=== PATIENT | female | born 1995 | race Caucasian/White ===

== ENCOUNTER → 2021-06-25 13:27 | Outpatient (BNVA) | payer SELFPAY | PROVIDERS: Family Provider General Practice; PCP Family Medicine; Visit Provider Nurse Practitioner Women's Health | DX: O20.9 Hemorrhage in early pregnancy, unspecified (principal); Z3A.00 Weeks of gestation of pregnancy not specified | CPT/HCPCS: 84702; 85025; 86850; 86900 ==

== ENCOUNTER 2021-12-05 09:34 | Outpatient (CLI) | payer OTHER, SELFPAY ==
[2021-12-05 10:29] LABS: Hematocrit 42.3 % (37.0-47.0); Hemoglobin 15.2 g/dL (11.5-15.3); Mean Corpuscular HGB Conc 35.9 g/dL (30.0-36.0); Mean Corpuscular Hemoglobin 30.8 pg (28.0-34.0); Mean Corpuscular Volume 85.6 fl (81-99); Mean Platelet Volume 9.7 fL (7.4-10.4); Platelet Count 346 10^3/cmm (130-400); Red Blood Count 4.94 10^6/uL (4.1-5.3); Red Cell Distribution Width 12.2 % (12.1-15.1); White Blood Count 8.7 10^3/uL (4.0-10.0)
== END 2021-12-05 09:35 | disposition home or self-care (01) ==
PROVIDERS: PCP Family Medicine; Visit Provider Nurse Practitioner Women's Health
DX: N92.6 Irregular menstruation, unspecified (principal)
CPT/HCPCS: 81025; 84702; 85027; 86850; 86900

== ENCOUNTER → 2022-01-06 08:09 | Outpatient (BNVA) | payer OTHER, SELFPAY | PROVIDERS: PCP Family Medicine; Visit Provider Obstetrics & Gynecology | DX: Z34.90 Encounter for supervision of normal pregnancy, unspecified, unspecified trimester (principal) | CPT/HCPCS: 80307; 84315; 85027; 86592; 86762; 86803; 86850; 86900; 87086; 87340; 87491; 87591; 87806; 88175 ==

== ENCOUNTER → 2022-03-17 15:05 | Outpatient (BNVA) | payer OTHER, SELFPAY | PROVIDERS: PCP Family Medicine; Visit Provider Obstetrics & Gynecology | DX: Z34.90 Encounter for supervision of normal pregnancy, unspecified, unspecified trimester (principal); R82.90 Unspecified abnormal findings in urine | CPT/HCPCS: 84315; 87086 ==

== ENCOUNTER → 2022-04-29 12:03 | Outpatient (BNVA) | payer OTHER, SELFPAY | PROVIDERS: PCP Family Medicine; Visit Provider Obstetrics & Gynecology | DX: Z34.90 Encounter for supervision of normal pregnancy, unspecified, unspecified trimester (principal) | CPT/HCPCS: 82950; 84315; 85027 ==

== ENCOUNTER → 2022-06-03 09:10 | Outpatient (BNVA) | payer OTHER, SELFPAY | PROVIDERS: PCP Family Medicine; Visit Provider Obstetrics & Gynecology | DX: O40.9XX0 Polyhydramnios, unspecified trimester, not applicable or unspecified (principal); Z3A.00 Weeks of gestation of pregnancy not specified | CPT/HCPCS: 76815; 76819 ==

== ENCOUNTER → 2022-07-01 09:42 | Outpatient (BNVA) | payer OTHER, SELFPAY | PROVIDERS: PCP Family Medicine; Visit Provider Obstetrics & Gynecology | DX: O40.9XX0 Polyhydramnios, unspecified trimester, not applicable or unspecified (principal); Z3A.00 Weeks of gestation of pregnancy not specified | CPT/HCPCS: 76815; 76819; 84315; 87081 ==

== ENCOUNTER → 2022-07-08 12:56 | Outpatient (BNVA) | payer OTHER, SELFPAY | PROVIDERS: PCP Family Medicine; Visit Provider Obstetrics & Gynecology | DX: O40.3XX0 Polyhydramnios, third trimester, not applicable or unspecified (principal); Z3A.00 Weeks of gestation of pregnancy not specified | CPT/HCPCS: 76819; 84315 ==

== ENCOUNTER → 2022-07-15 11:44 | Outpatient (BNVA) | payer OTHER, SELFPAY | PROVIDERS: PCP Family Medicine; Visit Provider Obstetrics & Gynecology | DX: O40.9XX0 Polyhydramnios, unspecified trimester, not applicable or unspecified (principal); Z3A.00 Weeks of gestation of pregnancy not specified | CPT/HCPCS: 76819 ==

== ENCOUNTER 2022-07-15 12:49 | Outpatient (CLI) | payer OTHER, SELFPAY ==
[2022-07-15 12:49] VITALS: BMI 32.8
[2022-07-15 13:05] VITALS: TEMP 36.7
[2022-07-15 13:06] VITALS: BP 128/86; PULSE 98
[2022-07-15 13:34] LABS: Basophils % 0.3 %; Eosinophils # 0.1 10^3/uL (0.0-0.8); Eosinophils % 0.9 %; Hematocrit 34.4 % (37.0-47.0); Hemoglobin 12.2 g/dL (11.5-15.3); Lymphocytes % 21.9 %; Mean Corpuscular HGB Conc 35.5 g/dL (30.0-36.0); Mean Corpuscular Volume 87.5 fl (81-99); Mean Platelet Volume 11.1 fL (7.4-10.4); Monocytes # 0.6 10^3/uL (0.2-0.9); Monocytes % 6.3 %; Neutrophils % 70.3 %; Nucleated Red Blood Cells % 0 %; Platelet Count 313 10^3/cmm (130-400); Red Blood Count 3.93 10^6/uL (4.1-5.3); Red Cell Distribution Width 13.6 % (12.1-15.1)
[2022-07-15 13:52] LABS: Alanine Aminotransferase 11 U/L (0-33); Albumin Level 3.5 g/dL (3.5-5.2); Alkaline Phosphatase 162 U/L (35-105); Anion Gap 17.4 (5-19); Aspartate Amino Transferase 18 U/L (0-32); Blood Urea Nitrogen 7 mg/dL (6-20); Calcium 9.9 mg/dL (8.5-10.5); Carbon Dioxide 19 mmol/L (22-29); Chloride 98 mmol/L (98-107); Globulin 3.5 g/dL (1.3-4.6); Glomerular Filtration Rate 145.9 mL/min (90-130); Glucose 89 mg/dL (65-115); Osmolality Calculated 267 mOsm/kg (285-295); Potassium 4.4 mmol/L (3.5-5.1); Sodium 130 mmol/L (136-145); Total Bilirubin 0.3 mg/dL (0.15-1.2); Uric Acid 3.7 mg/dL (2.4-5.7)
[2022-07-15 14:00] LABS: Urine Creatinine 28 mg/dL (28-217); Urine Protein Random 5 mg/dL
[2022-07-15 14:01] LABS: UPRO/UCREAT Ratio 0.18 mg/mg CR
[2022-07-15 14:10] VITALS: BP 127/87; PULSE 76
[2022-07-15 14:15] LABS: Protein Urine Neg (Negative); Urine Appearance Hazy (CLEAR); Urine Color Yellow (Yellow); pH Urine 8 (5-7)
[2022-07-15 14:16] LABS: Add Urine Culture? Yes; Add Urine Microscopic? YES; Bacteria Urine 2+ /hpf; Bilirubin Urine Neg (Negative); Blood Urine Neg (Negative); Glucose Urine UA Norm (Normal); Ketones Urine Negative (Negative); Leukocyte Esterase Urine 1+ (Negative); Nitrate Urine Negative (Negative); RBC Urine 0-4 /hpf (0-2); Sulfosalicylic Acid Urine Negative (Negative); Urobilinogen Urine Neg (Negative)
== END 2022-07-15 14:24 | disposition home or self-care (01) ==
LOC: OPOB 12:56 → OBGYN 13:01
PROVIDERS: PCP Family Medicine; Visit Provider Obstetrics & Gynecology
DX: O40.3XX0 Polyhydramnios, third trimester, not applicable or unspecified (principal); Z3A.38 38 weeks gestation of pregnancy
CPT/HCPCS: 36415; 59025; 80053; 81000; 81001; 82570; 84156; 84550; 85025; 87086; 99211

== ENCOUNTER → 2022-07-21 10:27 | Outpatient (BNVA) | payer OTHER, SELFPAY | PROVIDERS: PCP Family Medicine; Visit Provider Obstetrics & Gynecology | DX: O40.9XX0 Polyhydramnios, unspecified trimester, not applicable or unspecified (principal); Z3A.00 Weeks of gestation of pregnancy not specified | CPT/HCPCS: 76819; 84315 ==

== ENCOUNTER 2022-07-23 01:02 | Inpatient (IN) | payer OTHER, SELFPAY ==
[2022-07-22] VITALS (14 sets, daily range): BP systolic 106–135; BP diastolic 64–99; PULSE 69–85; RESP 15–16; TEMP 36.5–36.6; BMI 33.7
[2022-07-22] MEDS: dextrose 5%-lactated ringers 1,000 ML 999 ML IV ×2 (22:01→23:05)
[2022-07-22 23:02] LABS: Basophils % 0.4 %; Eosinophils # 0.1 10^3/uL (0.0-0.8); Hemoglobin 11.5 g/dL (11.5-15.3); Lymphocytes # 2.7 10^3/uL (0.8-4.8); Lymphocytes % 24.4 %; Mean Corpuscular HGB Conc 34.8 g/dL (30.0-36.0); Mean Corpuscular Hemoglobin 30.5 pg (28.0-34.0); Mean Corpuscular Volume 87.5 fl (81-99); Mean Platelet Volume 11.9 fL (7.4-10.4); Monocytes # 0.8 10^3/uL (0.2-0.9); Monocytes % 7.5 %; Neutrophils % 66.3 %; Nucleated Red Blood Cells % 0 %; Platelet Count 301 10^3/cmm (130-400); Red Blood Count 3.77 10^6/uL (4.1-5.3); Red Cell Distribution Width 13.4 % (12.1-15.1)
[2022-07-22] MEDS: miSOPROStol 100 mcg tablet 25 MCG VAGINAL (23:52)
[2022-07-23] VITALS (95 sets, daily range): BP systolic 95–147; BP diastolic 54–118; PULSE 38–107; RESP 16–18; TEMP 36.2–37.3; O2SAT 95–100
[2022-07-23] MEDS: dextrose 5%-lactated ringers 1,000 ML 999 ML IV (04:10)
[2022-07-23] MEDS: dextrose 5%-lactated ringers 1,000 ML 125 ML IV ×3 (05:56→14:05)
[2022-07-23] MEDS: lactated ringers 1,000 ML 999 ML IV ×3 (08:34→15:12)
--- NOTE | 2022-07-23 10:04 | P.ANESASSM_ITS ---
Pre-Anesthetic Assessment Height/Weight: Height 1.65 m Weight 92.079 kg Temp Pulse Resp BP Pulse Ox O2 Del Method 97.3 F L 71 15 110/70 99 07/23/22 09:59 07/23/22 10:01 07/22/22 21:23 07/23/22 10:01 07/23/22 10:01 07/22/22 21:17 Familial anesthetic complications: none Was Beta Alan taken within 24 hours: N/A Was Clonidine taken within 24 hours: N/A Social No alcohol Exam alert, oriented x 3, clear to auscultation bilaterally and regular rate & rhythm Airway Submandibular: within normal limits Cervical ROM: within normal limits Mallampati: Class II Dentition: full History/ROS No significant history except as noted GI Gastroesophageal Reflux Disease Anesthetic Plan ASA status: 2 Anesthesia: Regional (specify below) (labor epidural) Medications/Allergies Home Medications Medication Instructions Recorded Confirmed Last Taken Type prenat.vits,yamileth,ova-jvoc-fllco 1 tab PO DAILY 01/06/22 07/22/22 07/14/22 History famotidine 20 mg tablet (Pepcid) 20 mg PO DAILY 05/28/22 07/22/22 Unknown Hist ory Allergies Allergy/AdvReac Type Severity Reaction Status Date / Time No Known Allergies Allergy Verified 07/22/22 22:23 Current Medications Generic Name Dose Route Start Last Admin Trade Name Freq PRN Reason Stop Dose Admin Dextrose/Lactated Ringer's 1,000 mls @ 125 mls/hr 07/22/22 21:30 07/23/22 05:56 Dextrose 5%-Lactated Ringers IV 125 mls/hr .Q8H ENRIQUE Administration Ropivacaine 200 mg in 100 mls @ 13 mls/hr 07/23/22 08:30 07/23/22 09:54 Naropin Premix EPIDURAL 13 mls/hr .Q7H42M ENRIQUE Administration Lactated Ringer's 1,000 mls @ 999 mls/hr 07/23/22 08:22 07/23/22 09:35 Lactated Ringers IV 999 mls/hr .Q1H1M PRN Administration See label comments PFSH Anesthesia Medical History No pertinent past medical history Denies diabetes, asthma, hypertension, seizures, DVT/PE PCP: Dr. Pérez Surgical History No pertinent past surgical history Family History Grandmother Stroke Paternal Sister Thyroid disease x2 Hypertension Grandfather Diabetes Paternal Heart disease Paternal -- dx age 70 Father Diabetes Heart disease dx age 49 Denies family history of Colon cancer Ovarian cancer Hypercholesteremia Breast cancer Uterine cancer Social History Smoking and tobacco status: never smoked Female Reproductive History Date of last menstrual period: 10/22/21 : 2 Data Anesthesia : 07/22/22 21:48 Short CBC 07/22/22 Range/Units 21:48 WBC 11.0 H (4.0-10.0) 10^3/uL Hgb 11.5 (11.5-15.3) g/dL Hct 33.0 L (37.0-47.0) % MCV 87.5 (81-99) fl Plt Count 301 (130-400) 10^3/cmm Neut % (Auto) 66.3 % Neut # (Auto) 7.30 (1.8-7.7) 10^3/uL Cardiac Studies: No Data to Display Anesthesia Procedures Epidural Time Out Performed: Yes Consents Signed: Procedure Consent Consent: requested by attending/covering physician, from patient, risks and benefits reviewed and patient agrees to proceed Lumbar Level: L3-L4 Epidural position: sitting Epidural procedure: sterile prep of area, 1% lidocaine to numb the area, 18 g needle, neg for paresthesia, test dose given, 1.5% xylocaine 1:200k epi, placed PCEA, no systemic response, sterile dressing applied and 0.2% Ropiavacaine @ mls/hr (13) Additional Comments: NAVYA at 8cm, cath at 12cm, bolused 5mls of 2% lido PF
--- NOTE | 2022-07-23 11:15 | PM.OPHPUD ---
Labor & Delivery H&P Update Date of Procedure: July 23, 2022 Date H&P Performed: 07/21/22 H&P update information: I have reviewed H&P completed within last 30 days, I have examined patient prior to procedure and No changes to prior documentation Admission Diagnosis: Related Problem List Diagnoses (1) GERD (gastroesophageal reflux disease): (2) Supervision of normal :
--- NOTE | 2022-07-23 15:03 | P.PN_ITS ---
Subjective Subjective: The patient has been making slow progress all day. She would have variable decelerations, then have a normal tracing. AROM produced thick meconium fluid. Since then, she has not progressed past 6 cm. Her perineum is becoming swollen, as well as her cervix. The baby is now having late appearing decelerations with every contraction. We have tried every resuscitative measure without resolution. She has had a persistent category 2 tracing. I have spoken with the patient and recommend section at this time. It has been called as an urgent . Vitals/I&O/Wt Last Vital Signs Temp 97.2 F L 07/23/22 13:21 Pulse 70 07/23/22 14:48 Resp 15 07/22/22 21:23 BP 126/68 07/23/22 14:48 Pulse Ox 100 07/23/22 10:26 O2 Del Method 07/22/22 21:17 07/23/22 07/23/22 07/23/22 06:59 14:59 22:59 Intake Total 3000.0 / 3000.0 3425.001 / 3425.001 Output Total 600 / 600 Balance 2400.0 / 2400.0 3425.001 / 3425.001 Weight last 48 hrs Weight 203 lb Physical Exam Urinary Catheter Management: Rogers Latex: Cath Placed During This Visit: yes Urinary Catheter Date of Insertion: 07/23/22 Urinary Catheter Time of Insertion: 10:20 Data : 07/22/22 21:48 Attestations Medical Necessity Statement*: The patient will have a section. She will be here at least two midnights. Coding Level of Care Code Acute Cardroom Attendant for Esteban Sellers
[2022-07-23] MEDS: famotidine 20 mg/2 mL INJ IVP (15:21)
[2022-07-23] MEDS: metoclopramide 5 mg/mL SDV 2 mL 10 MG IVP (15:21)
[2022-07-23] MEDS: citric acid-sodium citrate 30 mL UDC PO (15:21)
[2022-07-23] MEDS: ceFAZolin 2,000 MG in sodium chloride 0.9% (plus) 50 ML 100 MG IV (15:21)
--- NOTE | 2022-07-23 16:45 | ANE.PACU2 ---
Inpatient post-anesthesia follow up: Airway intact: Yes Vital signs: Temperature 99.1 F Pulse Rate 100 Respiratory Rate 15 Blood Pressure 117/76 Pulse Oximetry 100 Oxygen Delivery Me thod Room Air Oxygen Flow Rate Fraction of Inspir ed Oxygen Hydration adequate: Yes Nausea and vomiting: No Pain level: 1 Mental status: Baseline
--- NOTE | 2022-07-23 16:46 | PM.OP ---
Operative Report Date of procedure: July 23, 2022 Pre-op diagnosis: intolerance to labor Post-op diagnosis: same Procedure done: primary Specimens removed/disposition: placenta to pathology Surgeon: Arleth Vaz Anesthesia: Epidural Estimated blood loss (mL): 700 IV fluids (mL): 1,500 Urine output (mL): 50 Complications: none Findings: term male in the KRISTI presentation with a double nuchal cord Condition: stable Disposition: PACU Brief History: The patient was admitted for induction at term. She received one dose of cytotec and began to labor. The baby would have periods of category 2 tracings and then return to category 1. After about 4 hours of being dilated to 6 cm, the tracing showed decreased variability and late appearing decelerations with almost every contraction. I recommended a . She agreed. Procedure: The patient was taken to the operating room where spinal anesthesia was administered and found to be adequate. She was prepped and draped in the normal sterile fashion in the dorsal supine position with a leftward tilt. A Pfannenstiel skin incision was made and carried down to the underlying layer of fascia. The fascia was nicked in the midline and extended laterally with the Alonzo scissors. The fascia was then tented up and the rectus muscles dissected off sharply. The rectus muscles were and the peritoneum entered bluntly with the digit. The peritoneal incision was extended superiorly and inferiorly with good visualization of the bladder. The Kenyon O retractor was placed. It was clear of any bowel or omentum. The bladder flap was created sharply with the Metzenbaum scissors. A low transverse uterine incision was made and carried down to the bag of water. The bag of water was ruptured and the uterine incision extended cephalocaudad. The scalp was grasped but I was unable to bring the head through the incision. A vacuum was placed onto the occiput and pressure pumped into the green. The vacuum moved and there was an immediate pop-off. I replaced the vacuum on the occiput and pumped the vacuum into the green. This time the head was brought through the incision, followed by the remainder of the baby. There was a double nuchal cord present and it was reduced. The baby had decreased tone. The cord was immediately clamped and cut and the baby was handed to the waiting news camera person. The placenta was delivered by expression. The uterus was cleared of all clots and debris. The uterine incision was closed with 0 Vicryl in a running fashion. A second imbricating layer of 3-0 Monocryl was used to close the uterus. The bladder flap was closed with 3-0 Monocryl. There was excellent hemostasis. The [place]yon O retractor was removed. The peritoneum was closed with 3-0 Monocryl, incorporating the rectus muscle. The fascia was closed with 0 Vicryl in 2 separate sutures overlapping in the midline. The skin was closed with absorbable joselito. Apgars on baby 2 at 1 minute and 7 at 5 minutes. weight 6 pounds 9 ounces. Mother was stable post delivery. Baby was taken to the nursery for observation.
--- NOTE | 2022-07-23 16:56 | PC.NURSE ---
epidural catheter removed by CLAUDIO Reddy in OR
--- NOTE | 2022-07-23 17:20 | PC.NURSE ---
pt moved to OB-8 from OR via bed. oriented to room/call light. instructed not to try to get out of bed without assistance. diet discussed to advance as tolerated.
[2022-07-23] MEDS: HYDROmorphone 1 mg/mL INJ 1 mL 1.5 MG IVP ×2 (18:42→21:14)
[2022-07-23] MEDS: ketorolac 30 mg/mL INJ IVP (22:48)
[2022-07-24 01:09] VITALS: BP 125/78; PULSE 77; RESP 16; O2SAT 97
[2022-07-24 02:54] VITALS: BP 114/70; PULSE 87; RESP 16; O2SAT 97
[2022-07-24] MEDS: simethicone 80 mg Chew PO ×3 (03:54→20:54)
[2022-07-24] MEDS: ketorolac 30 mg/mL INJ IVP (03:54)
[2022-07-24 04:10] LABS: Hemoglobin 9.4 g/dL (11.5-15.3); Mean Corpuscular HGB Conc 34.8 g/dL (30.0-36.0); Mean Corpuscular Hemoglobin 30.8 pg (28.0-34.0); Mean Corpuscular Volume 88.5 fl (81-99); Mean Platelet Volume 10.8 fL (7.4-10.4); Platelet Count 201 10^3/cmm (130-400); Red Blood Count 3.05 10^6/uL (4.1-5.3); Red Cell Distribution Width 13.9 % (12.1-15.1); White Blood Count 12.5 10^3/uL (4.0-10.0)
[2022-07-24] MEDS: prenatal vitamin Capsule 1 CAP PO (07:45)
[2022-07-24] MEDS: HYDROcodone-acetaminophen 5-325 mg Tablet PO ×3 (07:45→21:14)
[2022-07-24] MEDS: ferrous sulfate EC 325 mg Tablet PO (07:45)
[2022-07-24] MEDS: ibuprofen 800 mg tablet PO ×3 (10:07→20:43)
[2022-07-24] MEDS: docusate sodium 100 mg Capsule PO (10:08)
[2022-07-24 10:15] VITALS: BP 118/77; PULSE 90; RESP 16; TEMP 36.6
--- NOTE | 2022-07-24 14:05 | P.PN_ITS ---
Subjective Subjective: The patient is doing well today. Pain is well controlled. She is up and ambulating. Vitals/I&O/Wt Last Vital Signs Temp 97.9 F 07/24/22 10:15 Pulse 90 07/24/22 10:15 Resp 16 07/24/22 10:15 BP 118/77 07/24/22 10:15 Pulse Ox 97 07/24/22 02:54 O2 Del Method 07/24/22 10:15 07/23/22 07/24/22 07/24/22 22:59 06:59 14:59 Intake Total 2719.583 / 6144.584 Output Total 2049 / 2049 1960 / 4010 400 / 400 Balance 669.583 / 4094.584 -1960 / 2134.584 -400 / -400 Weight last 48 hrs Weight 203 lb Physical Exam Narrative: Pain is controlled with oral pain medication. She is tolerating a regular diet. Breast feeding is going well. Const: COMMON NORMALS: no acute distress, patient oriented x3, no limitations, healthy appearing, alert and well nourished GENERAL APPEARANCE: cooperative, comfortable, well kempt and well developed ORIENTATION/CONSCIOUSNESS: Yes awake, Yes oriented to person, Yes oriented to place and Yes oriented to time Resp: COMMON NORMALS: normal respiratory effort EFFORT & INSPECTION: Yes able to speak in complete sentences GI: COMMON NORMALS: Soft to palpation and non-tender PALPATION: Yes Soft to palpation Extremity: COMMON NORMALS: no calf tenderness Neuro: COMMON NORMALS: patient oriented x3 SENSORIUM/ORIENTATION: Yes alert, Yes oriented to person, Yes oriented to place and Yes oriented to time Psych: APPEARANCE: Yes well kempt Urinary Catheter Management: Rogers Latex: Cath Placed During This Visit: yes Urinary Catheter Date of Insertion: 07/23/22 Urinary Catheter Time of Insertion: 10:20 Data : 07/24/22 04:02 Attestations Medical Necessity Statement*: The patient had a last night. She will be here for at least two midnights Coding Level of Care Code Acute Road Production General Manager for Esteban Sellers
[2022-07-24 16:20] VITALS: BP 116/83; PULSE 91; RESP 16; TEMP 37.6
[2022-07-24 22:10] VITALS: BP 119/79; PULSE 87; RESP 16
[2022-07-25 04:00] VITALS: BP 137/100; PULSE 100
[2022-07-25] MEDS: HYDROcodone-acetaminophen 5-325 mg Tablet PO ×2 (04:07→09:38)
--- NOTE | 2022-07-25 08:20 | ANE.PACU2 ---
Inpatient post-anesthesia follow up: Airway intact: Yes Vital signs: Temperature 99.7 F Pulse Rate 100 Respiratory Rate 16 Blood Pressure 137/100 Pulse Oximetry 97 Oxygen Delivery Me thod Room Air Oxygen Flow Rate Fraction of Inspir ed Oxygen Hydration adequate: Yes Nausea and vomiting: No Pain level: 1 Mental status: Baseline
--- NOTE | 2022-07-25 09:08 | PM.DCS ---
Discharge Providers Date of Admission: 07/23/22 01:02 Date of Discharge: July 25, 2022 Attending Provider at Admission: Arleth Vaz MD Attending Provider at Discharge: Arleth Vaz MD Primary Care Provider: Iglesia Pérez MD Diagnoses at Discharge Discharge Diagnosis (1) GERD (gastroesophageal reflux disease): Status: Acute (2) Supervision of normal : Status: Acute Reason for Visit Reason for Visit: INDUCTION OF LABOR Hospital Course Hospital Course The patient was admitted for induction of labor at term. She received one dose of cytotec and began having contractions. She began labor off of the single dose. She achieved 6 cm dilation and baby began to have decelerations. With resuscitative measures, the tracing would return to category 1. The baby started to have late decelerations and the variability decreased leading to a persistent category 2 tracing. There were no further resuscitative measures that helped. The patient was taken for an urgent . She did well . Baby had to have some assistance at , but did well and they are both ready for discharge on day #2 Physical Exam Narrative: The patient is doing well. No concerns today Breast feeding is going well. Const: COMMON NORMALS: no acute distress, patient oriented x3, no limitations, healthy appearing, alert and well nourished GENERAL APPEARANCE: cooperative, comfortable, well kempt and well developed ORIENTATION/CONSCIOUSNESS: Yes awake, Yes oriented to person, Yes oriented to place and Yes oriented to time Resp: COMMON NORMALS: normal respiratory effort EFFORT & INSPECTION: Yes able to speak in complete sentences GI: COMMON NORMALS: Soft to palpation and non-tender PALPATION: Yes Soft to palpation Extremity: COMMON NORMALS: no calf tenderness Neuro: COMMON NORMALS: patient oriented x3 SENSORIUM/ORIENTATION: Yes alert, Yes oriented to person, Yes oriented to place and Yes oriented to time Psych: APPEARANCE: Yes well kempt Urinary Catheter Management: Rogers Latex: Cath Placed During This Visit: yes Urinary Catheter Date of Insertion: 07/23/22 Urinary Catheter Time of Insertion: 10:20 Discharge Data Studies Completed and Pending Pending at discharge Category Date Time Status Pathology: Surgical [PTH] Routine Pth 07/23/22 16:44 Received Laboratory Results WBC 12.5 10^3/uL (4.0-10.0) H 07/24/22 04:02 RBC 3.05 10^6/uL (4.1-5.3) L 07/24/22 04:02 Hgb 9.4 g/dL (11.5-15.3) L 07/24/22 04:02 Hct 27.0 % (37.0-47.0) L 07/24/22 04:02 MCV 88.5 fl (81-99) 07/24/22 04:02 MCH 30.8 pg (28.0-34.0) 07/24/22 04:02 MCHC 34.8 g/dL (30.0-36.0) 07/24/22 04:02 RDW 13.9 % (12.1-15.1) 07/24/22 04:02 Plt Count 201 10^3/cmm (130-400) 07/24/22 04:02 MPV 10.8 fL (7.4-10.4) H 07/24/22 04:02 Neut % (Auto) 66.3 % 07/22/22 21:48 Lymph % (Auto) 24.4 % 07/22/22 21:48 [place] % (Auto) 7.5 % 07/22/22 21:48 Eos % (Auto) 1.0 % 07/22/22 21:48 Baso % (Auto) 0.4 % 07/22/22 21:48 Neut # (Auto) 7.30 10^3/uL (1.8-7.7) 07/22/22 21:48 Lymph # (Auto) 2.7 10^3/uL (0.8-4.8) 07/22/22 21:48 [place] # (Auto) 0.8 10^3/uL (0.2-0.9) 07/22/22 21:48 Eos # (Auto) 0.1 10^3/uL (0.0-0.8) 07/22/22 21:48 Baso # (Auto) 0.0 10^3/uL (0.0-0.1) 07/22/22 21:48 Nucleated RBC % (auto) 0 % 07/22/22 21:48 Nucleated RBCs # 0.0 /100WBC 07/22/22 21:48 Vitals Last Vital Signs Temp 99.7 F H 07/24/22 16:20 Pulse 100 07/25/22 04:00 Resp 16 07/24/22 22:10 BP 137/100 07/25/22 04:00 Pulse Ox 97 07/24/22 02:54 O2 Del Method 07/24/22 16:20 Discharge Plan Discharge Patient Disposition: Home Condition: Stable Prescriptions: New ibuprofen 800 mg Tablet 800 mg PO TID Qty: 30 0RF hydrocodone-acetaminophen 5-325 mg Tablet 1 tab PO Q4H PRN (Reason: Moderate To Severe Pain) Qty: 30 0RF docusate sodium 100 mg Capsule 100 mg PO BID Qty: 60 0RF Continued prenat.vits,yamileth,fjr-tmvv-akubf Tablet 1 tab PO DAILY famotidine [Pepcid] 20 mg tablet 20 mg PO DAILY Discharge Orders: Discharge Order (Routine); Ordered 07/25/22 Ordered By: Arleth Vaz Patient Instructions: Opioid Safety Discharge Attestations Time Spent in Discharge Care*: less than 30 min Quality Metrics Clinical Quality Measures [ No reported AMI, CVA or VTE this stay] Coding Level of Care Code Acute Chg FW DC note Diagnoses GERD (gastroesophageal reflux disease) K21.9 Supervision of normal Z34.90
[2022-07-25] MEDS: prenatal vitamin Capsule 1 CAP PO (09:38)
[2022-07-25] MEDS: ferrous sulfate EC 325 mg Tablet PO (09:38)
[2022-07-25] MEDS: docusate sodium 100 mg Capsule PO (09:38)
[2022-07-25] MEDS: ibuprofen 800 mg tablet PO (09:39)
[2022-07-25 10:00] VITALS: BP 126/80; PULSE 87; RESP 18; TEMP 36.6
[2022-07-25] MEDS: cyclobenzaprine 10 mg Tablet PO (11:04)
[2022-07-25 12:00] VITALS: BP 118/75; PULSE 89; RESP 18
== END 2022-07-25 12:20 | disposition home or self-care (01) | DRG 788 ==
LOC: OPOB 01:03 → OBGYN 01:03
PROVIDERS: Admitting Provider Obstetrics & Gynecology; PCP Family Medicine; Visit Provider Obstetrics & Gynecology
PROC: 10D00Z1 Extraction of Products of Conception, Low, Open Approach (ICD-10-PCS; CPT 59514; principal; 2022-07-23 15:30)
DX: O76 Abnormality in fetal heart rate and rhythm complicating labor and delivery (principal); O69.2XX0 Labor and delivery complicated by other cord entanglement, with compression, not applicable or unspecified; O40.3XX0 Polyhydramnios, third trimester, not applicable or unspecified; O77.0 Labor and delivery complicated by meconium in amniotic fluid; Z3A.39 39 weeks gestation of pregnancy; Z37.0 Single live birth; O75.89 Other specified complications of labor and delivery; K21.9 Gastro-esophageal reflux disease without esophagitis
CPT/HCPCS: 36415; 51702; 59025; 85025; 85027; 88307; 98960; J1170; J1885; J2370; J2765; J2795; J3010; J3490; J7030

== ENCOUNTER → 2025-04-24 14:33 | Outpatient (BNVA) | payer OTHER, SELFPAY | PROVIDERS: PCP Family Medicine; Visit Provider Family Medicine | DX: G43.109 Migraine with aura, not intractable, without status migrainosus (principal); R53.83 Other fatigue; N92.0 Excessive and frequent menstruation with regular cycle; D64.9 Anemia, unspecified | CPT/HCPCS: 80053; 82728; 83540; 84443; 85025 ==